=== PATIENT | male | born 1995 | race Caucasian/White ===

== ENCOUNTER 2019-10-12 22:20 | Emergency (ER) | payer BC, OTHER ==
[~2019-10-12] VITALS: Ht 177.8 cm; Wt 90.7 kg
[2019-10-12 23:21] VITALS: BP 145/82
== END 2019-10-12 23:34 | disposition home or self-care (01) ==
LOC: ER 22:20
DX: S43.005A Unspecified dislocation of left shoulder joint, initial encounter (principal); X50.1XXA Overexertion from prolonged static or awkward postures, initial encounter; Y93.68 Activity, volleyball (beach) (court); Y92.89 Other specified places as the place of occurrence of the external cause; Y99.9 Unspecified external cause status